=== PATIENT | female | born 1990 | race Caucasian/White ===

== ENCOUNTER 2019-01-15 19:55 | Inpatient (IN) | payer MEDICAID ==
[~2019-01-15] VITALS: Ht 167.6 cm; Wt 113.0 kg
[2019-01-15] MEDS ORDERED: PRENAVITE1 TAB PO (20:18)
[2019-01-15 20:33] VITALS: BP 136/86; Ht 167.6 cm; Wt 113.0 kg
[2019-01-15 21:18] LABS: HEMATOCRIT 32.8 % (36.0-48.0); HEMOGLOBIN 11.5 g/dL (12-16); MCH 29.6 pg (26.0-34.0); MCHC 35.1 g/dL (31.0-37.0); MCV 84.5 fL (80.0-100.0); RBC 3.88 10x6/uL (4.00-5.40); RDW 13.5 % (11.5-14.5); WBC 8.8 10x3/uL (4.8-10.8)
[2019-01-15 21:37] LABS: APPEARANCE HAZY (CLEAR); BILIRUBIN NEGATIVE (NEGATIVE); COLOR YELLOW (YELLOW); GLUCOSE NEGATIVE (NEGATIVE); KETONE NEGATIVE (NEGATIVE); NITRITE NEGATIVE (NEGATIVE); PROTEIN TRACE mg/dL (NEGATIVE); UROBILINOGEN NORMAL (NORMAL)
[2019-01-15 21:38] LABS: RED CELLS - URINE OCC /hpf (0-5); WHITE CELLS - URINE 0-5 /hpf (NEGATIVE)
[2019-01-15 21:39] LABS: BACTERIA MANY /hpf (NEGATIVE)
--- NOTE | 2019-01-16 14:39 | NUR ---
PT OOB AND AMB TO BR. UNABLE TO VOID. PT TRANSFERED VIA AMBULATORY TO ROOM 1273. PT TO BED. ORIENTED TO ROOM, BED, AND CALL LIGHT. C/O PAIN TO PERINEUM OF "5" ON 0-10 PAIN SCALE. TYLENOL 1000 MG GIVEN PO ORDERED. PT INSTRUCTED ON MED. VERBALIZES UNDERSTANDING.
--- NOTE | 2019-01-16 15:55 | NUR ---
PT C/O PAIN TO PERINEUM OF "5" ON 0-10 PAIN SCALE. TORADOL 10 MG GIVEN PO ORDERED.
--- NOTE | 2019-01-16 16:00 | NUR ---
PT VOIDS 150 ML OF BLOOD TINGED URINE. PERICARE DONE PER PT. PANTIES AND PAD ON. PT AMBULATES BACK TO BED. SHALONDA ACTIVITY WELL.
--- NOTE | 2019-01-16 17:35 | NUR ---
PT AMBULATES TO BR TO VOID.
--- NOTE | 2019-01-16 17:42 | NUR ---
PT VOIDS 200 ML OF BLOOD-TINGED URINE. PERICARE DONE PER PT. PT INSTRUCTED ON USE OF TUCKS AND DERMAPLAST SPRAY. PT DEMONSTRATES UNDERSTANDING. PAD CHANGED. PT BACK TO BED. SHALONDA ACTIVITY WELL.
--- NOTE | 2019-01-16 18:30 | NUR ---
PT SITTING UP IN BED. VISITS WITH FAMILY. DENIES C/O OR NEEDS.
[2019-01-16 19:53] VITALS: BP 135/83
--- NOTE | 2019-01-16 19:53 | NUR ---
SHIFT ASSESSMENT COMPLETED, SEE FLOWSHEET
--- NOTE | 2019-01-16 21:21 | NUR ---
TYLENOL 1000MG PO PER MD ORDERS, SEE EMAR. PT PROVIDED WITH WATER PER REQUEST. NO FURTHER NEEDS IDENTIFIED. WILL CONTINUE TO MONITOR.
--- NOTE | 2019-01-16 22:06 | NUR ---
PT DENIES PAIN AT THIS TIME. BED REMAINS LOCKED IN LOW POSITION, SIDE RAILS UPX2, CALL NOONAN AND TRAY TABLE IN REACH. WILL CONTINUE TO MONITOR.
[2019-01-16 22:52] VITALS: BP 136/79
--- NOTE | 2019-01-16 22:52 | NUR ---
PT SITTING UP IN BED VISITING WITH FAMILY. PT DENIES ANY NEEDS. VITAL SIGNS OBTAINED. BED REMAINS LOCKED IN LOW POSITION, SIDE RAILS UPX2, CALL NOONAN AND TRAY TABLE IN REACH. WILL CONTINUE TO MONITOR
--- NOTE | 2019-01-17 00:35 | NUR ---
PT SITTINF UP IN BED HOLDING AT THIS TIME, NO NEEDS IDENTIFIED. WILL CONTINUE TO MONITOR
--- NOTE | 2019-01-17 02:34 | NUR ---
PT RESTING QUIETLY WITH EYES CLOSED, EASILY AROUSED TO VERBAL, DENIES NEEDS AT THIS TIME
--- NOTE | 2019-01-17 03:21 | NUR ---
PT SLEEPING, WILL HOLD TYLENOL AT THIS TIME
--- NOTE | 2019-01-17 03:50 | NUR ---
PATIENT SLEEPING AT THIS TIME, NO DISTRESS NOTED. BED REMAINS LOCKED IN LOW POSITION, SIDE RAILS UPX2, CALL NOONAN AND TRAY TABLE IN REACH. WILL CONTINUE TO MONITOR
--- NOTE | 2019-01-17 05:12 | NUR ---
tylenol administered per md orders, see emar
[2019-01-17 07:13] LABS: RAPID PLASMA REAGIN Non Reactive (Non Reactive)
--- NOTE | 2019-01-17 07:40 | NUR ---
THIS RN TO ROOM FOR SHIFT ASSESSMENT. PT LYING IN BED, SUPINE WITH HOB 45DEGREES. AAOx3. PT RATES PAIN 3/10 AT THIS TIME, DENIES NEED FOR PAIN INTERVENTION. PT DENIES HEAVY LOCHIA, INSTRUCTED ON S/S TO REPORT, UNDERSTANDING VERBALIZED. SHIFT ASSESSMENT COMPLETED, SEE FLOWSHEET FOR ASSESSMENT AND VS. SALINE LOCK PIV TO RIGHT HAND INTACT, NO SIGNS OF PHLEBITIS. FF, ML, U/2. SMALL RUBRA LOCHIA NOTED TO PERIPAD, NO CLOTS EXPELLED WITH MASSAGE. GENERALIZED LE EDEMA BILAT, NON-PITTING. PEDAL PULSES 2+ BILAT. NEG HOMANS SIGN. POC DISCUSSED WITH PT, PT ASKING WHEN SHE CAN GO HOME. PT DENIES NEEDS AT THIS TIME. INSTRUCTED TO CALL FOR ANY NEEDS. WHITE BOARD UPDATED.
--- NOTE | 2019-01-17 09:08 | NUR ---
THIS RN TO ROOM TO TRANSFER TO ROOM VIA CRIBETTE. PT AAOx3, PROVIDED WITH PANTIES PER REQUEST, DENIES FURTHER NEEDS. SRUx2, CL IN REACH.
--- NOTE | 2019-01-17 10:15 | NUR ---
THIS RN TO ROOM FOR PT CHECK. PT STATES SHE WANTS TO SHOWER. RIGHT HAND PIV D/C'D IT IS NO LONGER INDICATED. SHOWER SUPPLIES AND LINENS PROVIDED. PT INSTRUCTED TO CALL WHEN UP TO SHOWER AND THIS RN WILL CHANGE BED LINENS. UNDERSTANDING VERBALIZED. LYING ON BED WITH PT SITTING UP WITH HER, AAOx2. SRUx2, CL IN REACH. SIG OTHER IN ROOM.
--- NOTE | 2019-01-17 11:00 | NUR ---
THIS RN TO ROOM FOR PT CHECK. PT SITTING IN BED, STATES SHE SHOWERED ALREADY. THIS RN OFFERS TO CHANGE BED LINENS, PT AGREES AND MOVES TO BEDSIDE COUCH WITH SIG OTHER. BED LINENS CHANGED. PT REQUESTS ICE WATER, DENIES NEED FOR PAIN INTERVENTION. WILL PROVIDE REQUESTED.
[2019-01-17 11:16] VITALS: BP 133/82
--- NOTE | 2019-01-17 11:16 | NUR ---
ICE WATER PROVIDED TO PT REQUESTED. VSS, SEE FLOWSHEET FOR DOC. PT DENIES FURTHER NEEDS. SRUx2, CL IN REACH. WILL CONT TO MONITOR.
--- NOTE | 2019-01-17 14:55 | NUR ---
THIS RN TO ROOM FOR PT CHECK. PT PROVIDED WITH ICE WATER PER REQUEST. PT DENIES PAIN OR FURTHER NEEDS. SRUx2, CL IN REACH. SIG OTHER IN ROOM WITH PT.
--- NOTE | 2019-01-17 17:56 | NUR ---
THIS RN TO ROOM FOR PT CHECK AND REFRIGERATION PERSON. SCHEDULED TYLENOL ADMIN ORDERED, SEE EMAR FOR DOC. PT PROVIDED WITH ICE WATER PER REQUEST, DENIES PAIN OR ANY NEEDS. SRUx2, CL IN REACH. WILL CONT TO MONITOR. SIG OTHER AT BEDSIDE.
[2019-01-17 19:26] VITALS: BP 144/80
--- NOTE | 2019-01-17 19:26 | NUR ---
PT. SITTING UP IN BED CROSS LEGGED WITH BETWEEN LEGS SLEEPING. STATES PAIN IS A 2 OF 10 ON PAIN SCALE BUT DOES NOT NEED ANY PAIN MEDS. FUNDUS FIRM U/2 AND LOCHIA RUBRA SCANT. DENIES ANY PAIN IN LOWER EXTREMITIES. MALE SITTING BESIDE BED AND BOTH WATCHING A MOVIE ON COMPUTER ON BEDSIDE TABLE. DENIES ANY NEEDS.
--- NOTE | 2019-01-17 22:15 | NUR ---
PT. WALKING ABOUT IN ROOM. DENIES ANY PAIN OR NEEDS AT THIS TIME. FOB IN ROOM WITH PT. INFANT IN OPEN CRIB.
[2019-01-17 23:33] VITALS: BP 139/74
--- NOTE | 2019-01-17 23:33 | NUR ---
PT. AWAKE LYING ON BACK WITH HOB AT 45 DEGREES. FOB AT BEDSIDE. INFANT ASLEEP IN OPEN CRIB AT FOOT OF BED. VITAL SIGNS OBTAINED . WENT OVER SOME DISCHARGE INFORMATION REGARDING LENGTH OF TIME FOR LOCHIA TO CONTINUE, HOW TO KNOW IF LOCHIA IS TOO HEAVY, TEMPERATURE ELEVATION TO REPORT TO MD, CONTINUING VITAMINS FOR LENGTH OF . PT. STATES HER FOB WILL BE HER HELP WHEN AT HOME. ENCOURAGED HER TO TAKE CARE OF HER NEEDS AND BABY'S NEEDS FOR FIRST WEEK AND LET FOB DO COOKING , HOUSEKEEPING ETC. ENCOURAGED HER ALSO SLEEP WHENEVER HER BABY SLEPT. PT. ASKED IF THE NBN NURSE WOULD COME LOOK AT HER INFANT BECAUSE SHE WAS FEARFUL SHE WAS JAUNDICED. NBN NURSE INFORMED.
--- NOTE | 2019-01-17 23:46 | NUR ---
SCHEDULED TYLENOL GIVEN ORDERED. RATES PAIN A 2 OF 10 WHICH IS INTERMITTENT PERINEAL DISCOMFORT. DENIES ANY FURTHER NEEDS.
--- NOTE | 2019-01-18 02:10 | NUR ---
LYING ON LT SIDE. RESPIRATIONS UNLABORED. INFANT ASLEEP IN OPEN CRIB AT BEDSIDE. FOB SLEEPING ON SOFA.
--- NOTE | 2019-01-18 04:20 | NUR ---
LYING ON RT SIDE WITH IN OPEN CRIB AT BEDSIDE. PT. TENDING TO WHEN CRYING. FOB ASLEEP ON SOFA. PT. DENIES ANY NEEDS OR PAIN.
--- NOTE | 2019-01-18 05:36 | NUR ---
LYING ON RT SIDE WITH EYES CLOSED AND RESPIRATIONS UNLABORED. FOB ASLEEP ON SOFA. CURRENTLY IN NBN. WILL NOT AWAKEN FOR SCHEDULED TYLENOL AT THIS TIME. PT. HAS SLEPT VERY LIMITED TIME DUE TO AND TENDING TO INFANT TONIGHT.
--- NOTE | 2019-01-18 05:48 | NUR ---
INFANT TO ROOM PER NBN NURSE. PT. CONTINUES TO LIE ON RT SIDE WITH EYES CLOSED. DOES NOT AROUSE TO THIS NURSE IN ROOM. WILL CONTINUE TO HOLD TYLENOL AT THIS TIME.
--- NOTE | 2019-01-18 06:32 | NUR ---
PT. CONTINUES TO LIE ON RT SIDE WITH EYES CLOSED AND RESPIRATIONS UNLABORED. ASLEEP IN OPEN CRIB AT BEDSIDE.
--- NOTE | 2019-01-18 06:45 | NUR ---
DENIES ANY PAIN. TYLENOL GIVEN SCHEDULED. INFORMED PT. DID NOT AWAKEN HER FOR MED AT 0600 AND PT. STATES THAT SHE IS GLAD SHE WASN'T AWAKENED. FOB ASLEEP ON SOFA. PT AT PRESENT.
[2019-01-18 07:25] VITALS: BP 132/70
--- NOTE | 2019-01-18 07:33 | NUR ---
ASSUMED CARE OF THIS PATIENT SITTING UP HOLDING INFANT. SHIFT ASSESSMENT COMPLETED. DENIES NEEDING ANYTHING. ANTICIPATE DC HOME TODAY. NON-SMOKER, , A+ RUBELLA IMMUNE, GBS +, TDAP DUE THIS YEAR-WILL OFFER PER PROTOCOL. SIDE RAILS UP X 2, CALL LIGHT IN REACH. VISITOR SLEEPING ON COUCH.
--- NOTE | 2019-01-18 10:09 | NUR ---
DR BRUNO VISITED PATIENT. PLANS TO DC HOME TODAY.
--- NOTE | 2019-01-18 11:07 | NUR ---
SITTING UP ON COUCH, READY TO GO HOME. SCHEDULED TYLENOL GIVEN. DESIRES TDAP. WILL GIVE BEFORE DC HOME. FOB AND INFANT IN ROOM. TO CALL IF ANYTHING IS NEEDED.
--- NOTE | 2019-01-18 11:23 | NUR ---
PT DESIRED TDAP WHICH WAS GIVEN IN LEFT DELTOID WITHOUT DIFFICULTY. WAITING ON DC HOME.
--- NOTE | 2019-01-18 12:32 | NUR ---
DC TEACHING COMPLETED. VERBAL AND WRITTEN INFORMATION GIVEN ON ROUTINE PP CARE, PP DEPRESSION, S&S INFECTION, DANGER SIGNS, MEDICATION ADMINISTRATION, /BREAST CARE AND FOLLOW-UP.
--- NOTE | 2019-01-18 12:46 | NUR ---
DC'D VIA WHEELCHAIR TO CAR. IN CARSEAT. FOB DRIVING. HAS DC INSTRUCTIONS. ALL BELONGINGS REMOVED FROM ROOM.
== END 2019-01-18 12:46 | disposition home or self-care (01) | DRG 807 ==
LOC: D.LD 19:55
PROVIDERS: ADMIT Obstetrics & Gynecology; ATTEND Obstetrics & Gynecology
PROC: 10E0XZZ Delivery of Products of Conception, External Approach (ICD-10-PCS; principal; 2019-01-16)
PROC: 0KQM0ZZ Repair Perineum Muscle, Open Approach (ICD-10-PCS; 2019-01-16)
DX: O70.1 Second degree perineal laceration during delivery (principal); Z37.0 Single live birth; Z3A.40 40 weeks gestation of pregnancy